=== PATIENT | male | born 1985 ===

== ENCOUNTER 2022-12-01 09:28 | Outpatient (AMB) | payer OTHER, SELFPAY ==
[2022-12-01 09:31] VITALS: BP 118/74; PULSE 94; O2SAT 96; BMI 26.4
--- NOTE | 2022-12-01 09:31 | MHC.PC.OV ---
Vital Signs 12/01/22 09:31 Height 5 ft 10 in Weight 184 lb BMI 26.4 BP 118/74 Blood Pressure Location Lt brachial Position Sitting Pulse 94 Pulse Source Pulse Oximeter Temp Source Skin Pulse Oximetry (%) 96 Oxygen Delivery Method Room Air Intake Visit Reasons: Annual PE Intake Note: Patient is here today for a physical. 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 Patient of Dr. Avalos. Medical history significant for anxiety which is stable with escitalopram and Klonopin p.r.n.-patient reports that he will think about counseling and Psychiatry referral. Denies shortness of breath or chest pain. Dentist visit within past year. Up-to-date with tetanus vaccine. Reports no problems with his eyes, does not see eye doctor. FORMERLY [facility] Medical History Anxiety Surgical History History of inguinal hernia repair Family History Father Medical history unknown Mother Medical history unknown Paternal Grandmother CVD (cardiovascular disease) Maternal Grandfather No problems noted. Social History Housing: House Alcohol intake: current Alcohol intake frequency: holidays/special occasions only Alcohol type: hard liquor Patient Tobacco Use Status: Never used Tobacco service: No Current occupational status: employed Cognitive needs: No Hearing needs: No Vision needs: No Questionnaire PHQ-9 Over the last 2 weeks, how often have you been bothered by any of the following problems? 1. Little interest or pleasure in doing things: not at all 2. Feeling down, depressed, or hopeless: not at all 3. Trouble falling or staying asleep, or sleeping too much: not at all 4. Feeling tired or having little energy: not at all 5. Poor appetite or overeating: not at all 6. Feeling bad about yourself - or that you are a failure or have let yourself or your family down: not at all 7. Trouble concentrating on things, such as reading the newspaper or watching television: not at all 8. Moving or speaking so slowly that other people could have noticed. Or the opposite - being so fidgety or restless that you have been moving around a lot more than usual: not at all 9. Thoughts that you would be better off or of hurting yourself in some way: not at all Total score: 0 Depression Screening Interpretation: Negative 43741 - PHQ-9 Billing: Yes Source: Developed by Drs. Cameron Merino, Doris Faye, Devante Odell and colleagues, with an educational simone from [employer]. Thrive Questionnaire Date Thrive assessed: 12/01/22 I am a: Patient What is your living situation today?: I have a steady place to live Within the past 12 months, did the food you bought not last and you didn't have the money to get more?: Never true Within the past 12 months, did you worry whether your food would run out before you got money to buy more?: Never true Currently or been in a relationship where the following occur: no concerns reported AUDIT C Alcohol Use Questionnaire (AUDIT-C) 1. How often do you have a drink containing alcohol?: Never 3. How often do you have six or more drinks on one occasion?: Never Total Score: 0 Score Reviewed/Action Taken: No MARIA ELENA-7 AMB Questionnaire MARIA ELENA-7 Date MARIA ELENA - 7 assessed: 12/01/22 Feeling nervous, anxious, or on edge: 0 = Not at all Not being able to stop or control worryin = Not at all Worrying too much about different things: 0 = Not at all Trouble relaxin = Not at all Being so restless that it is hard to sit still: 0 = Not at all Becoming easily annoyed or irritable: 0 = Not at all Feeling afraid as if something awful might happen: 0 = Not at all Total MARIA ELENA-7 score (0-4 normal; 5-9 mild; 10-14 moderate; 15-21 severe): 0 Source: Developed by Drs. Cameron Merino, Doris Faye, Devante Odell and colleagues, with an educational simone from [employer]. MARIA ELENA-7 Assessment Billing MARIA ELENA-7 Assessment Tool: MARIA ELENA-7 Assessment 09539 Review of Systems Const Denies body aches, Denies chills, Denies fever(s) and Denies headache(s) Eyes Denies change in vision ENT Denies dizziness, Denies otalgia, Denies headache(s), Denies nasal discharge, Denies sinus pain and Denies sore throat Card Denies chest pain, Denies edema, Denies lightheadedness and Denies dyspnea Resp Denies cough, Denies dyspnea and Denies wheezing GI Denies abdominal pain, Denies constipation, Denies diarrhea, Denies nausea and Denies vomiting Denies dysuria Musc Denies myalgias Skin/Breast Denies rash Neuro Denies dizziness and Denies headache(s) Aller/Immun Denies wheezing Physical exam (Primary Care) Vital Signs: Last Vital Signs Pulse 94 12/01/22 09:31 BP 118/74 12/01/22 09:31 Pulse Ox 96 12/01/22 09:31 Oxygen Delivery Method Room Air 12/01/22 09:31 BMI result Body Mass Index 26.4 Tobacco/Smoking Status: Tobacco use Status Tobacco use date assessed 12/01/22 12/01/22 09:39 Patient Tobacco Use Status Never used Tobacco 12/01/22 09:39 PHQ-9: PHQ-9 Score PHQ-9: Total score 0 12/01/22 09:39 Depression Screening Interpretation: Negative Thrive Assessment: Date of Thrive Assessment Date Thrive assessed 12/01/22 12/01/22 09:39 Currently or been in a relationship where the following occur: no concerns reported Const General: cooperative and no acute distress Orientation/consciousness: patient oriented x3 HENMT Head: Yes normocephalic and Yes atraumatic Ears: TM's normal bilaterally Face and sinus: Yes sinuses nontender Mouth: oropharynx normal and moist mucous membranes Throat: Yes posterior oropharynx normal Eyes General: appearance normal, both eyes and all related structures Pupils: Equal, round and reactive pupils present EOM: EOMs intact bilaterally Neck Neck: Yes normal visual inspection, Yes full ROM and Yes no lymphadenopathy Thyroid: Thyroid normal Resp Effort & Inspection: normal respiratory effort and able to speak in complete sentences Auscultation: clear to auscultation bilaterally, no crackles, no rales, no rhonchi and no wheezes Cardio Rate: regular rate Rhythm: regular rhythm Heart sounds: S1 normal heart sound present, S2 normal heart sound present and no murmurs GI Palpation (GI): Soft to palpation, not firm, nontender, no guarding, not rigid and no hepatosplenomegaly Auscultation: normal bowel sounds General: No CVA tenderness Back/Spine/Pelvis Back: No CVA tenderness Skin General skin exam: no rashes or lesions noted Neuro General: patient oriented x3 Cranial nerves: Yes Equal, round and reactive pupils present Gait exam (Neuro): Normal gait present Extrem General: Yes full ROM and No edema Assessment and Plan Assessment & Plan (1) Screening for hypothyroidism: Code(s): Z13.29 - Encounter for screening for other suspected endocrine disorder (2) Screening for hyperlipidemia: Code(s): Z13.220 - Encounter for screening for lipoid disorders (3) Screening for diabetes mellitus: Code(s): Z13.1 - Encounter for screening for diabetes mellitus (4) Adult general medical exam: Code(s): Z00.00 - Encounter for general adult medical examination without abnormal findings Plan: Repeat in 1 year Blood work ordered (5) Anxiety: Code(s): F41.9 - Anxiety disorder, unspecified Plan: Stable with escitalopram 10 mg daily and Klonopin 1 mg b.i.d. p.r.n.-educated about dependency and memory loss Advised patient to see counseling and Psychiatry, although patient reports that he will think about these referrals Orders: Orders Vitamin D 25-OH Total Today Z00.00 - Encounter for general adult medical examination without abnormal findings Vitamin B12 and Folate Today Z00.00 - Encounter for general adult medical examination without abnormal findings TSH reflex Free T4 Today Z13.29 - Encounter for screening for other suspected endocrine disorder Lipid Panel Today Z13.220 - Encounter for screening for lipoid disorders Comprehensive [place]. Panel Fast Today Z13.1 - Encounter for screening for diabetes mellitus Complete Blood Count Auto Diff Today Z00.00 - Encounter for general adult medical examination without abnormal findings Coding Level of Care Code Est Pt Prev Care 18-39y(04185) Diagnoses Screening for hypothyroidism Z13.29 Screening for hyperlipidemia Z13.220 Screening for diabetes mellitus Z13.1 Adult general medical exam Z00.00 Anxiety F41.9 Additional Codes MARIA ELENA-7 Assessment Billing - MARIA ELENA-7 Assessment Tool: MARIA ELENA-7 Assessment [id number] ([id number])
== END 2022-12-01 10:03 | disposition home or self-care (01) ==
PROVIDERS: PCP Internal Medicine; Visit Provider Nurse Practitioner Family
DX: Z00.00 Encounter for general adult medical examination without abnormal findings (principal); F41.9 Anxiety disorder, unspecified; Z13.29 Encounter for screening for other suspected endocrine disorder; Z13.220 Encounter for screening for lipoid disorders; Z13.1 Encounter for screening for diabetes mellitus
CPT/HCPCS: 99395

== ENCOUNTER 2023-12-21 08:37 | Outpatient (AMB) | payer OTHER, SELFPAY ==
[2023-12-21 08:40] VITALS: BP 126/84; PULSE 84; O2SAT 99; BMI 28.6
--- NOTE | 2023-12-21 08:40 | MHC.PC.OV ---
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 Allergies No Known Allergies Allergy (Verified 12/21/23 08:52) Medication List - Last Reconciled 12/21/23 by Karen Cha PA-C clonazepam 1 mg PO BID PRN 30 days escitalopram oxalate 10 mg PO DAILY 90 days Tobacco use date assessed: 12/21/23 Dental Screening Dental Screen Date: 12/21/23 Did you have a dental visit in the last 12 months?: Yes Did you have a dental problem in the last 6 months where you did not have access to dental care?: No Was dental information given to patient?: Patient has dentist HPI annual exam HPI Details 38-year-old male with past medical history of anxiety last seen by nurse practitioner coming in for annual exam. Patient is doing generally well he has no acute concerns today. His anxiety is well managed with clonazepam and escitalopram prescribed by Dr. Avalos. He does mentioned he takes the clonazepam twice a day. FORMERLY [facility] Medical History Anxiety Surgical History History of inguinal hernia repair Family History Father Medical history unknown Mother Medical history unknown Paternal Grandmother CVD (cardiovascular disease) Maternal Grandfather No problems noted. Social History Housing: House Alcohol intake: current Alcohol intake frequency: holidays/special occasions only Alcohol type: hard liquor Patient Tobacco Use Status: Never used Tobacco service: No Current occupational status: employed Cognitive needs: No Hearing needs: No Vision needs: No Questionnaire PHQ-9 Over the last 2 weeks, how often have you been bothered by any of the following problems? 1. Little interest or pleasure in doing things: not at all 2. Feeling down, depressed, or hopeless: not at all 3. Trouble falling or staying asleep, or sleeping too much: not at all 4. Feeling tired or having little energy: not at all 5. Poor appetite or overeating: not at all 6. Feeling bad about yourself - or that you are a failure or have let yourself or your family down: not at all 7. Trouble concentrating on things, such as reading the newspaper or watching television: not at all 8. Moving or speaking so slowly that other people could have noticed. Or the opposite - being so fidgety or restless that you have been moving around a lot more than usual: not at all 9. Thoughts that you would be better off or of hurting yourself in some way: not at all Total score: 0 Depression Screening Interpretation: Negative Depression Screening Done: Yes 62084 - PHQ-9 Billing: Yes Source: Developed by Drs. Cameron Merino, Doris Faye, Devante Odell and colleagues, with an educational simone from [employer]. Thrive Questionnaire Date Thrive assessed: 12/21/23 I am a: Patient What is your living situation today?: I have a steady place to live Within the past 12 months, did the food you bought not last and you didn't have the money to get more?: Never true Within the past 12 months, did you worry whether your food would run out before you got money to buy more?: Never true Do you have trouble paying for medicines?: No Do you have trouble getting transportation to medical appointments?: No Do you have trouble paying your heating and electricity bill?: No Do you have trouble taking care of your child, family member or friend?: No Do you have trouble with day-to-day activities such as bathing, preparing meals, shopping, managing finances, etc.?: No Are you currently unemployed and looking for a job?: No Are you interested in more education?: No Please select the resources that you would like help with: None Currently or been in a relationship where the following occur: I choose not to answer THRIVE Score: 0 AUDIT C Alcohol Use Questionnaire (AUDIT-C) 1. How often do you have a drink containing alcohol?: 2-4 times a month 2. How many drinks containing alcohol do you have on a typical day when you are drinking?: 3 or 4 3. How often do you have six or more drinks on one occasion?: Less than monthly Total Score: 4 MARIA ELENA-7 AMB Questionnaire MARIA ELENA-7 Date MARIA ELENA - 7 assessed: 12/21/23 Feeling nervous, anxious, or on edge: 0 = Not at all Not being able to stop or control worryin = Not at all Worrying too much about different things: 0 = Not at all Trouble relaxin = Not at all Being so restless that it is hard to sit still: 0 = Not at all Becoming easily annoyed or irritable: 0 = Not at all Feeling afraid as if something awful might happen: 0 = Not at all Total MARIA ELENA-7 score (0-4 normal; 5-9 mild; 10-14 moderate; 15-21 severe): 0 Source: Developed by Drs. Cameron Merino, Doris Faye, Devante Odell and colleagues, with an educational simone from [employer]. MARIA ELENA-7 Assessment Billing MARIA ELENA-7 Assessment Tool: MARIA ELENA-7 Assessment 35632 Review of Systems Const Denies body aches, Denies fatigue, Denies fever(s), Denies frequent falls, Denies headache(s) and Denies weakness Eyes Reports no additional complaints and Denies change in vision ENT Denies dysphagia, Denies dizziness, Denies facial pain, Denies headache(s), Denies nasal congestion and Denies odynophagia Card Denies chest pain, Denies syncope, Denies irregular heart rhythm, Denies leg edema, Denies lightheadedness and Denies dyspnea Resp Denies cough and Denies dyspnea GI Denies constipation, Denies dysphagia, Denies dyspepsia, Denies diarrhea, Denies nausea, Denies odynophagia and Denies vomiting Denies dysuria, Denies urinary frequency, Denies urinary hesitancy and Denies urinary urgency Musc Denies back pain and Denies myalgias Skin/Breast Reports system reviewed and no additional complaints, except as documented Neuro Denies dizziness, Denies syncope, Denies frequent falls, Denies headache(s) and Denies weakness Psych Reports no additional complaints Endo Denies fatigue Physical exam (Primary Care) Vital Signs: Oxygen Delivery Method Room Air 12/21/23 08:40 BMI result Body Mass Index 28.6 Tobacco/Smoking Status: Tobacco use Status Tobacco use date assessed 12/01/22 12/01/22 09:39 Patient Tobacco Use Status Never used Tobacco 12/01/22 09:39 Depression Screening Interpretation: Negative Thrive Assessment: Date of Thrive Assessment Date Thrive assessed 12/01/22 12/01/22 09:39 Currently or been in a relationship where the following occur: I choose not to answer Advance Care Planning discussion: Completed/Scanned Date of discussion: 12/21/23 Who was present: Patient 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 Time spent: 1-15 minutes, on File Actual minutes spent: 5 Did not discuss due to Cultural/Spiritual beliefs: No Const General: cooperative, healthy appearing, comfortable and no acute distress Orientation/consciousness: patient oriented x3 HENMT Head: Yes normocephalic Ears: hearing grossly normal bilaterally, external ears normal, TM's normal bilaterally and EAC's normal General nose exam: Normal external nose present Face and sinus: Yes normal facial exam and Yes sinuses nontender Mouth: Normal oral and palatal mucosa present and tongue normal Throat: Yes posterior oropharynx normal Eyes General: appearance normal, both eyes and all related structures Conjunctivae: conjunctivae normal Pupils: Equal, round and reactive pupils present EOM: EOMs intact bilaterally and No Nystagmus present Neck Neck: Yes normal visual inspection, Yes full ROM and Yes no lymphadenopathy Chest Chest palpation & inspection: normal inspection of the chest Resp Effort & Inspection: normal respiratory effort Auscultation: clear to auscultation bilaterally, no crackles, no rales, no rhonchi, no wheezes and breath sounds present Cardio Rate: regular rate Rhythm: regular rhythm Peripheral pulses: radial pulses present and dorsalis pedis present GI Inspection: Yes normal to inspection and No Abdominal wall edema Palpation (GI): Soft to palpation, not firm and nontender Auscultation: normal bowel sounds Rectal Exam - Male: Yes deferred General: Yes no CVA tenderness Back/Spine/Pelvis Back: no CVA tenderness Skin General skin exam: no rashes or lesions noted Neuro General: patient oriented x3 Cranial nerves: Yes Equal, round and reactive pupils present, Yes Midline tongue present, Yes Ability to bilaterally elevate shoulders present and No Nystagmus present Gait exam (Neuro): Normal gait present Extrem General: Yes normal to inspection, Yes full ROM, No no pedal edema and No edema Psych Speech and movement: Normal speech and movement present Affect: normal affect Insight: Good insight present (Psych) Judgement: Good judgement present (Psych) Assessment and Plan Assessment & Plan (1) Anxiety: Code(s): F41.9 - Anxiety disorder, unspecified Plan: Patient feels his anxiety is well managed on clonazepam b.i.d. and escitalopram daily. He denies need for counselor. Continue on current med regimen. Discussed with patient the importance of taking his medications as prescribed. He does mentioned he noticed withdrawal symptoms from the clonazepam when he went 1 day without them. Discussed with patient the dangers of withdrawals from benzodiazepines and when to seek medical attention. (2) Adult general medical exam: Code(s): Z00.00 - Encounter for general adult medical examination without abnormal findings Plan: Patient is up-to-date on all recommended routine screenings and vaccinations for his age. Updated blood work ordered today follow up in 1 year or sooner if new problems arise. Plan This note was constructed using voice recognition software. While every effort has been made to ensure accuracy and president finance company, still areas may have been included sometimes these areas may affect the content or meeting of the given symptoms. Total time spent caring for the patient today was 35 minutes. This includes time spent before the visit reviewing the chart, time spent during the visit, and time spent after the visit and documentation. Orders: Orders Comprehensive Met. Panel Today Z00.00 - Encounter for general adult medical examination without abnormal findings Free T4 (Free Thyroxine) Today Z00.00 - Encounter for general adult medical examination without abnormal findings Complete Blood Count Auto Diff Today Z00.00 - Encounter for general adult medical examination without abnormal findings Lipid Panel Today Z00.00 - Encounter for general adult medical examination without abnormal findings TSH reflex Free T4 Today Z00.00 - Encounter for general adult medical examination without abnormal findings Vitamin B12 and Folate Today Z00.00 - Encounter for general adult medical examination without abnormal findings Vitamin D 25-OH (D2 and D3) Today Z00.00 - Encounter for general adult medical examination without abnormal findings Coding Level of Care Code Est Pt Prev Care 18-39y(42450) Diagnoses Anxiety F41.9 Adult general medical exam Z00.00 Additional Codes MARIA ELENA-7 Assessment Billing - MARIA ELENA-7 Assessment Tool: MARIA ELENA-7 Assessment 06004 ([id number]) Vital Signs *Quality* - Advance Care Planning discussion: Completed/Scanned ([id number]) Vital Signs *Quality* - Time spent: 1-15 minutes, on File ([id number])
== END 2023-12-21 09:10 | disposition home or self-care (01) ==
PROVIDERS: PCP Internal Medicine
DX: Z00.00 Encounter for general adult medical examination without abnormal findings (principal); F41.9 Anxiety disorder, unspecified
CPT/HCPCS: 1123F; 99395

== ENCOUNTER 2025-03-03 18:20 | Emergency (ER) | payer OTHER, SELFPAY ==
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
[2025-03-03 19:10] VITALS: BP 132/68; PULSE 55; RESP 16; TEMP 36.8; O2SAT 97; BMI 28.9
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
[2025-03-03 22:51] VITALS: BP 133/87; PULSE 54; RESP 18; TEMP 36.6; O2SAT 98
== END 2025-03-03 23:03 | disposition home or self-care (01) ==
PROVIDERS: Emergency Provider Emergency Medicine; PCP Internal Medicine
DX: S16.1XXA Strain of muscle, fascia and tendon at neck level, initial encounter (principal); S29.012A Strain of muscle and tendon of back wall of thorax, initial encounter; R51.9 Headache, unspecified; V89.2XXA Person injured in unspecified motor-vehicle accident, traffic, initial encounter; Y93.9 Activity, unspecified; Y92.410 Unspecified street and highway as the place of occurrence of the external cause; Y99.9 Unspecified external cause status
CPT/HCPCS: 70450; 72125; 99284

== ENCOUNTER → 2025-03-03 19:17 | Outpatient (BNV) | payer OTHER, SELFPAY | PROVIDERS: PCP Internal Medicine; Visit Provider Radiology Diagnostic Radiology | DX: M54.2 Cervicalgia (principal); R51.9 Headache, unspecified; V89.2XXA Person injured in unspecified motor-vehicle accident, traffic, initial encounter | CPT/HCPCS: 70450; 72125 ==

== ENCOUNTER 2025-03-20 15:29 | Outpatient (AMB) | payer OTHER, SELFPAY ==
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
--- NOTE | 2025-03-20 15:41 | MHC.PC.OV ---
Vital Signs 03/20/25 15:44 Height 5 ft 10 in Weight 205 lb 6 oz BMI 29.5 BP 112/68 Blood Pressure Location Lt brachial Position Sitting Pulse 65 Pulse Source Pulse Oximeter Temp 97.1 F Temp Source Temporal Artery Scan Pulse Oximetry (%) 95 Oxygen Delivery Method Room Air Intake Visit Reasons: annual exam Intake Note: Patient is here today for a physical. Special Investigation Unit Investigator Required: No Electronic Test Technician: Not Required per policy Accompanied by: Self / Same As Patient Allergies No Known Allergies Allergy (Verified 03/20/25 15:49) Medication List - Last Reconciled 03/20/25 by Karen Cha PA-C clonazepam 1 mg PO BID PRN 30 days cyclobenzaprine 10 mg PO TID PRN escitalopram oxalate 10 mg PO DAILY 90 days lidocaine 5% (Lidoderm) 1 patch topical DAILY meloxicam 15 mg PO DAILY Tobacco use date assessed: 03/20/25 Dental Screening Dental Screen Date: 03/20/25 Did you have a dental visit in the last 12 months?: No Did you have a dental problem in the last 6 months where you did not have access to dental care?: No Was dental information given to patient?: No HPI annual exam HPI Details 39-year-old male with past medical history of anxiety last seen 12/2023 coming in for annual exam. Presenting for an annual wellness exam, a medication refill. The patient reports that his anxiety and depression are well-managed on his current regimen of escitalopram and clonazepam, which he takes twice daily. He is requesting a refill for clonazepam as he has run out of the medication. He has a history of an irregular heartbeat, diagnosed as a cardiac arrhythmia approximately 15-20 years ago after experiencing frequent palpitations, though he is currently asymptomatic. The patient notes multiple subcutaneous lumps, which he believes are hereditary lipomas, located on his flank and lower back; they are asymptomatic. vaccines: TD UTD, declined flu PFSH Medical History Anxiety Surgical History History of inguinal hernia repair Family History Father Medical history unknown Mother Medical history unknown Paternal Grandmother CVD (cardiovascular disease) Maternal Grandfather No problems noted. Social History Housing: House Alcohol intake: current Alcohol intake frequency: holidays/special occasions only Alcohol type: hard liquor Patient Tobacco Use Status: Never used Tobacco e-Cigarette/Vaping Use: Never Used Second Hand Smoke Exposure: No service: No Current occupational status: employed Cognitive needs: No Hearing needs: No Vision needs: No Questionnaire PHQ-9 Over the last 2 weeks, how often have you been bothered by any of the following problems? 1. Little interest or pleasure in doing things: not at all 2. Feeling down, depressed, or hopeless: not at all 3. Trouble falling or staying asleep, or sleeping too much: not at all 4. Feeling tired or having little energy: not at all 5. Poor appetite or overeating: not at all 6. Feeling bad about yourself - or that you are a failure or have let yourself or your family down: not at all 7. Trouble concentrating on things, such as reading the newspaper or watching television: not at all 8. Moving or speaking so slowly that other people could have noticed. Or the opposite - being so fidgety or restless that you have been moving around a lot more than usual: not at all 9. Thoughts that you would be better off or of hurting yourself in some way: not at all Total score: 0 Depression Screening Interpretation: Negative Depression Screening Done: Yes 13691 - PHQ-9 Billing: Yes Source: Developed by Drs. Cameron Merino, Doris Faye, Devante Odell and colleagues, with an educational simone from [email or web address]. Thrive Questionnaire Date Thrive assessed: 03/18/25 I am a: Patient What is your living situation today?: I have a steady place to live Within the past 12 months, did the food you bought not last and you didn't have the money to get more?: Never true Within the past 12 months, did you worry whether your food would run out before you got money to buy more?: Never true Do you have trouble paying for medicines?: No Do you have trouble getting transportation to medical appointments?: No Do you have trouble paying your heating and electricity bill?: No Do you have trouble taking care of your child, family member or friend?: No Do you have trouble with day-to-day activities such as bathing, preparing meals, shopping, managing finances, etc.?: No Are you currently unemployed and looking for a job?: No Are you interested in more education?: No Please select the resources that you would like help with: None Currently or been in a relationship where the following occur: No concerns reported THRIVE Score: 0 AUDIT C Alcohol Use Questionnaire (AUDIT-C) 1. How often do you have a drink containing alcohol?: Never Total Score: 0 MARIA ELENA-7 AMB Questionnaire MARIA ELENA-7 Date MARIA ELENA - 7 assessed: 03/20/25 Feeling nervous, anxious, or on edge: 0 = Not at all Not being able to stop or control worryin = Not at all Worrying too much about different things: 0 = Not at all Trouble relaxin = More than half the days Being so restless that it is hard to sit still: 0 = Not at all Becoming easily annoyed or irritable: 0 = Not at all Feeling afraid as if something awful might happen: 0 = Not at all Total MARIA ELENA-7 score (0-4 normal; 5-9 mild; 10-14 moderate; 15-21 severe): 2 Source: Developed by Drs. Cameron Merino, Doris Faye, Devante Odell and colleagues, with an educational simone from [email or web address]. Review of Systems Const Denies body aches, Denies chills, Denies fever(s), Denies headache(s) and Denies poor appetite Eyes Reports no additional complaints ENT Denies dysphagia, Denies dizziness, Denies headache(s) and Denies odynophagia Card Denies chest pain, Denies syncope, Denies edema, Denies irregular heart rhythm, Denies lightheadedness and Denies dyspnea Resp Denies cough and Denies dyspnea GI Denies abdominal pain, Denies constipation, Denies dysphagia, Denies diarrhea, Denies nausea, Denies odynophagia and Denies vomiting Reports no additional complaints Musc Reports no additional complaints and Denies abnormal gait Skin/Breast Reports system reviewed and no additional complaints, except as documented Neuro Denies abnormal gait, Denies dizziness, Denies syncope and Denies headache(s) Psych Reports no additional complaints Physical exam (Primary Care) Vital Signs: Last Vital Signs Temp 97.1 F 03/20/25 15:44 Pulse 65 03/20/25 15:44 BP 112/68 03/20/25 15:44 Pulse Ox 95 03/20/25 15:44 Oxygen Delivery Method Room Air 03/20/25 15:44 BMI result Body Mass Index 29.5 Tobacco/Smoking Status: Tobacco use Status Tobacco use date assessed 03/20/25 03/20/25 15:43 Patient Tobacco Use Status Never used Tobacco 03/20/25 15:43 e-Cigarette/Vaping Use Never Used 03/20/25 15:43 PHQ-9: PHQ-9 Score PHQ-9: Total score 0 03/20/25 15:50 Depression Screening Interpretation: Negative Thrive Assessment: Date of Thrive Assessment Date Thrive assessed 03/18/25 03/20/25 15:43 Currently or been in a relationship where the following occur: No concerns reported Const General: cooperative, healthy appearing, comfortable and no acute distress Orientation/consciousness: patient oriented x3 HENMT Head: Yes normocephalic Ears: hearing grossly normal bilaterally, external ears normal, TM's normal bilaterally and EAC's normal General nose exam: Normal external nose present Face and sinus: Yes normal facial exam and Yes sinuses nontender Mouth: Normal oral and palatal mucosa present and tongue normal Throat: Yes posterior oropharynx normal Eyes General: appearance normal, both eyes and all related structures Conjunctivae: conjunctivae normal Pupils: Equal, round and reactive pupils present EOM: EOMs intact bilaterally and No Nystagmus present Neck Neck: Yes normal visual inspection, Yes full ROM and Yes no lymphadenopathy Chest Chest palpation & inspection: normal inspection of the chest Resp Effort & Inspection: normal respiratory effort Auscultation: clear to auscultation bilaterally, no crackles, no rales, no rhonchi, no wheezes and breath sounds present Cardio Rate: regular rate Rhythm: regular rhythm Peripheral pulses: radial pulses present and dorsalis pedis present GI Inspection: Yes normal to inspection and No Abdominal wall edema Palpation (GI): Soft to palpation, not firm and nontender Auscultation: normal bowel sounds Rectal Exam - Male: Yes deferred General: Yes no CVA tenderness Back/Spine/Pelvis Back: no CVA tenderness Skin General skin exam: no rashes or lesions noted Full body images:  1. 2-3 cm soft nontender mass freely mobile with smooth borders 2. 1 cm small deep non tender mass freely mobile with smooth borders 3. 1 cm small deep non tender mass freely mobile with smooth borders Neuro General: patient oriented x3 Cranial nerves: Yes Equal, round and reactive pupils present, Yes Midline tongue present, Yes Ability to bilaterally elevate shoulders present and No Nystagmus present Gait exam (Neuro): Normal gait present Extrem General: Yes normal to inspection, Yes full ROM, No no pedal edema and No edema Psych Speech and movement: Normal speech and movement present Affect: normal affect Insight: Good insight present (Psych) Judgement: Good judgement present (Psych) Coding Level of Care Code Est Pt Prev Care 18-39y(14467) Diagnoses Adult general medical exam Z00.00 Anxiety F41.9 Intermittent palpitations R00.2 Soft tissue mass M79.89 Additional Codes PHQ-9 - 80712 - PHQ-9 Billing: Yes ([id number]) Assessment & Plan Assessment & Plan (1) Adult general medical exam: Code(s): Z00.00 - Encounter for general adult medical examination without abnormal findings Category: Medical Plan: Annual fasting laboratory studies were ordered, including a CBC, CMP, lipid panel, thyroid studies, and vitamin levels. An EKG was also ordered to establish a baseline given the patient's history. The patient declined the influenza vaccine at this time. He will follow up in one year for his next annual exam. (2) Anxiety: Code(s): F41.9 - Anxiety disorder, unspecified Category: Medical Plan: The patient reports his anxiety and depression are stable and well-managed with his current medication regimen of escitalopram and clonazepam. A prescription refill for clonazepam will be sent to his preferred pharmacy. (3) Intermittent palpitations: Comment: since childhood Code(s): R00.2 - Palpitations Category: Medical Plan: The patient has a remote history of a cardiac arrhythmia diagnosis. His cardiac exam today was normal with a regular rhythm. As a precaution and to establish a current baseline, an EKG was ordered. He was advised to report any symptoms such as lightheadedness, dizziness, or palpitations. (4) Soft tissue mass: Code(s): M79.89 - Other specified soft tissue disorders Category: Medical Plan: Physical exam revealed multiple mobile, non-tender subcutaneous nodules consistent with lipomas. The option for a general surgery referral for removal was discussed, outlining that this would be appropriate if the lesions become painful, grow, change, or for cosmetic reasons. The patient declined the referral at this time but will follow up if he changes his mind. Plan This note was constructed using voice recognition software. While every effort has been made to ensure accuracy and flanger, still areas may have been included sometimes these areas may affect the content or meeting of the given symptoms. Total time spent caring for the patient today was 30 minutes. This includes time spent before the visit reviewing the chart, time spent during the visit, and time spent after the visit and documentation. Patient was informed and verbally consented to the use of an ambient scribe for clinic note documentation during this visit. Orders: Orders Vitamin B12 and Folate Today Z13.21 - Encounter for screening for nutritional disorder Vitamin D 25-OH Total Today Z13.21 - Encounter for screening for nutritional disorder Lipid Panel Today Z13.220 - Encounter for screening for lipoid disorders Comprehensive Met. Panel Today Z00.00 - Encounter for general adult medical examination without abnormal findings, Z13.1 - Encounter for screening for diabetes mellitus UA CC w/rflx Micro + Cult Today R35.89 - Other polyuria TSH reflex Free T4 Today Z13.29 - Encounter for screening for other suspected endocrine disorder Complete Blood Count Auto Diff Today Z13.0 - Encounter for screening for diseases of the blood and blood-forming organs and certain disorders involving the immune mechanism, Z13.1 - Encounter for screening for diabetes mellitus ECG 12 lead EKG Today R00.2 - Palpitations Medications: Refilled clonazepam 1 mg PO BID PRN 60 tabs 0RF anxiety 30 days Discontinued cyclobenzaprine Discontinued Reason: Patient no longer taking 10 mg PO TID PRN 15 tabs 0RF muscle spasm lidocaine 5% (Lidoderm) leave on most painful area for up to 12 hrs Discontinued Reason: Patient no longer taking 1 patch topical DAILY 30 ea 0RF meloxicam Discontinued Reason: Patient no longer taking 15 mg PO DAILY 14 tabs 0RF
[2025-03-20 15:44] VITALS: BP 112/68; PULSE 65; TEMP 36.2; O2SAT 95; BMI 29.5
--- OUTSIDE RECORDS SUMMARY | 2025-03-20 19:29 | XMS_ITS | Clinical Summary ---
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 Name Role Phone Unavailable Primary Care Provider Unavailabl e Immunizations Immunization Administration Dates Next Due DTP 08/06/1992, 0,03/14/1988,01/05,1987 Hep B, ped/adol 03/19/2000,11/16/1999,09/07/1999 Hib (PRP-T) 07/23/1989 MMR 09/07/1999,01/19/1989 Meningococcal Conj (Menactra) MCV4P 02/22/2006 OPV 08/06/1992, 0,01/06/1988,09/29 Td (adult) (MBL), 2 Lf tetan us toxoid, PF, adsorbed 09/07/1999 Family History Relation Name Status Comments Brother 1 Alive Brother: Alive and well, Alive and well Brother 2 Alive Brother: Alive and well, Alive and well Father Alive Father: Alive a nd well Mother Alive Mother: Thyroid disease Other Family history of ADD/ADHD Sister Alive Sister: Alive a nd well Social History Tobacco Use Types Packs/Day Years Used Date Smoking Tobacco: Never Assessed Sex and Gender Information Value Date Recorded Sex Assigned at Not on file Legal Sex Male 4:19 PM EDT Gender Identity Not on file Sexual Orientation Not on file Plan of Treatment Health Maintenance Due Date Last Done Comments DTaP,Tdap,and Td Vaccines (6 - Tdap) 09/08/1999 09/07/1999, 08/06/1992, 07/23/1989, Additional history exists Varicella Vaccines (1 of 2 - 13+ 2-dose series) 07/30/2000 HPV Vaccines (1 - 3-dose SCDM series) 07/30/2014 Influenza Vaccines (#1) 2024 COVID-19 Vaccine ( - 2024- season) 2024 HIB Vaccines Completed 07/23/1989 IPV Vaccines Completed 08/06/1992, 040 12/1989, 01/06/1988, Additional history exists MMR Vaccines Completed 09/07/1999, 01/19/1989 Hepatitis B Vaccines Completed 03/19/2000, 11/16/1999, 09/07/1999 Meningococcal Vaccine Completed 02/22/2006 Hepatitis A Vaccines Aged Out No long er eligible based on patient's age to complete this topic Men B Vaccine Aged Out No longer elig ible based on patient's age to complete this topic Pneumococcal Vaccine Aged Out No long er eligible based on patient's age to complete this topic
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
--- OUTSIDE RECORDS SUMMARY | 2025-03-20 19:29 | XMS_ITS | Encounter Summary ---
Author Organization [facility] Address [address] [place] [phone] Phone Care Team Providers Care Director Of Flight Operations Name Role Phone Paz Humphries MD Primary Care Provider [phone] Encounter Details Date Type Department Care Team (Late st Contact Info) Description 11/30/2016 Conversion Encounter [facility] [place] [address] [place] [address] Social History Tobacco Use Types Packs/Day Years Used Date Smoking Tobacco: Never Assessed Sex and Gender Information Value Date Recorded Sex Assigned at Not on file Legal Sex Male 4:19 PM EDT Gender Identity Not on file Sexual Orientation Not on file documented as of this encounter Plan of Treatment Not on file documented as of this encounter Visit Diagnoses Not on filedocumented in this encounter Care Teams Director Of Flight Operations Relationship Specialty Start Date End Date Paz Humphries MD [address] [place] [address] PCP - General 11/24/16 07/18/22 documented as of this encounter
== END 2025-03-20 16:37 | disposition home or self-care (01) ==
LOC: HO.HMCH 15:30
DX: Z00.00 Encounter for general adult medical examination without abnormal findings (principal); F41.9 Anxiety disorder, unspecified; R00.2 Palpitations; M79.89 Other specified soft tissue disorders

== ENCOUNTER → 2025-03-20 15:29 | Outpatient (BNVA) | payer OTHER, SELFPAY | DX: Z00.00 Encounter for general adult medical examination without abnormal findings (principal); F41.9 Anxiety disorder, unspecified; R00.2 Palpitations; M79.89 Other specified soft tissue disorders | CPT/HCPCS: 96127 ==